=== PATIENT | male | born 1945 | race Caucasian/White ===

== ENCOUNTER 2016-12-11 21:31 | Observation (INO) | payer MEDICAID, MEDICARE ==
[2016-12-11 21:33] VITALS: BMI 27.4
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
[2016-12-11 22:12] LABS: BASO # 0.04 K/mm3 (0.0-2.0); BASO % 0.8 % (0.0-3.0); EOS # 0.1 (0.0-0.7); EOS % 2.7 % (1.5-5.0); GRAN # 2.74 (1.4-6.5); HEMATOCRIT 42.8 % (42.0-52.0); LYMPH # 1.8 (1.2-3.4); LYMPH % 34.2 % (22.0-35.0); MEAN CELL VOLUME 88.1 fl (80.0-105.0); MEAN CORPUSCULAR HGB CONC 34.1 g/dl (31.0-37.0); MONO # 0.5 (0.1-0.6); MONO % 10.3 % (1.0-6.0); RED CELL DISTRIBUTION WIDTH 14.5 % (11.5-14.5); WHITE BLOOD COUNT 5.3 10^3/ul (4.5-11.0)
[2016-12-11 22:26] LABS: INR 1.03 (0.93-1.08); PARTIAL THROMBOPLASTIN TIME 32.1 Seconds (25.1-36.5)
[2016-12-11 22:54] LABS: URINE BILIRUBIN NEGATIVE (NEGATIVE); URINE BLOOD NEGATIVE (NEGATIVE); URINE GLUCOSE (UA) NEGATIVE (NEGATIVE); URINE KETONE NEGATIVE (NEGATIVE); URINE LEUKOCYTE ESTERASE NEGATIVE Leu/uL (NEGATIVE); URINE PROTEIN TRACE mg/dL (<30 mg/dL)
[2016-12-11 22:57] LABS: ALB/GLOB RATIO 1.3 (1.1-1.8); ALKALINE PHOSPHATASE 34 U/L (38-126); ALT/SGPT 34 U/L (7-56); AMYLASE 89 U/L (35-125); AST/SGOT 33 U/L (17-59); BILIRUBIN,TOTAL 0.6 mg/dL (0.2-1.3); BLOOD UREA NITROGEN 18 mg/dL (7-21); CALCIUM 9.4 mg/dL (8.4-10.5); CARBON DIOXIDE 23 mmol/L (21-33); CHLORIDE 108 mmol/L (98-107); GFR AFRICAN-AMERICAN > 60; GLUCOSE,RANDOM 129 mg/dL (70-110); LIPASE 318 U/L (23-300); POTASSIUM 3.4 mmol/L (3.6-5.0); SODIUM 140 mmol/L (132-148); TOTAL PROTEIN 5.9 g/dL (5.8-8.3)
[2016-12-11 22:58] LABS: URINE APPEARANCE CLEAR (CLEAR); URINE COLOR YELLOW (YELLOW); URINE EPITHELIAL CELLS 0 - 2 /hpf (0-5); URINE RBC 0 - 2 /hpf (0-2); URINE WBC 0 - 2 /hpf (0-6)
[2016-12-11] MEDS ORDERED: Potassium Chloride 20 mEq ER Tab PO STA (23:11)
[2016-12-11 23:19] LABS: TROPONIN I < 0.01 ng/mL
[2016-12-11] MEDS ORDERED: Aspirin 325 mg EC Tablets PO STA (23:52)
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
[2016-12-12 06:27] LABS: BASO # 0.04 K/mm3 (0.0-2.0); BASO % 0.9 % (0.0-3.0); EOS # 0.1 (0.0-0.7); EOS % 3.1 % (1.5-5.0); GRAN # 2.4 (1.4-6.5); GRAN % 52.6 % (50.0-68.0); HEMATOCRIT 42.6 % (42.0-52.0); LYMPH # 1.6 (1.2-3.4); MEAN CELL VOLUME 87.3 fl (80.0-105.0); MEAN CORPUSCULAR HEMOGLOBIN 29.1 pg (25.0-35.0); MEAN CORPUSCULAR HGB CONC 33.3 g/dl (31.0-37.0); MONO # 0.4 (0.1-0.6); MONO % 9.4 % (1.0-6.0); RED CELL DISTRIBUTION WIDTH 14.5 % (11.5-14.5); WHITE BLOOD COUNT 4.6 10^3/ul (4.5-11.0)
[2016-12-12 06:34] LABS: ALB/GLOB RATIO 1.3 (1.1-1.8); ALKALINE PHOSPHATASE 39 U/L (38-126); ALT/SGPT 30 U/L (7-56); AST/SGOT 30 U/L (17-59); BILIRUBIN,TOTAL 0.7 mg/dL (0.2-1.3); BLOOD UREA NITROGEN 15 mg/dL (7-21); CALCIUM 9.6 mg/dL (8.4-10.5); CARBON DIOXIDE 21 mmol/L (21-33); CHLORIDE 111 mmol/L (98-107); CHOLESTEROL 178 mg/dL (130-200); GFR AFRICAN-AMERICAN > 60; GLUCOSE,RANDOM 88 mg/dL (70-110); PHOSPHOROUS 3.4 mg/dL (2.5-4.5); SODIUM 141 mmol/L (132-148); TOTAL PROTEIN 6.3 g/dL (5.8-8.3)
[2016-12-12 06:46] LABS: TROPONIN I < 0.01 ng/mL
[2016-12-12 08:11] VITALS: O2SAT 95
--- NOTE | 2016-12-12 10:08 | CARD ---
APPROVED REPORT EKG Measurement Heart [id number] [place] [id number] <Conclusion> Sinus rhythm Normal ECG No change
--- NOTE | 2016-12-12 10:12 | RAD ---
HISTORY: cp COMPARISON: Portable chest 12/18/2015. FINDINGS: LUNGS: No active pulmonary disease. PLEURA: No significant pleural effusion identified, no pneumothorax apparent. CARDIOVASCULAR: Normal. OSSEOUS STRUCTURES: No significant abnormalities. VISUALIZED UPPER ABDOMEN: Normal. OTHER FINDINGS: None. IMPRESSION: No interval acute cardiopulmonary disease appreciated.
--- NOTE | 2016-12-12 10:17 | CARD ---
APPROVED REPORT EKG Measurement Heart [id number] <Conclusion> Normal sinus rhythm Normal ECG No change
[2016-12-12 12:45] LABS: TROPONIN I < 0.01 ng/mL
[2016-12-12 13:10] VITALS: BP 96/55; RESP 18; TEMP 98.4
[2016-12-12 15:01] VITALS: PULSE 74
--- NOTE | 2016-12-12 18:22 | US ---
HISTORY: RUQ pain, h/o cholelithiasis COMPARISON: None. TECHNIQUE: Sonographic evaluation of the right upper quadrant of the abdomen. FINDINGS: Imaging is limited by body habitus. LIVER: Measures 13.5 cm in length. Normal echogenicity of the liver parenchyma. No mass. No intrahepatic bile duct dilatation. GALLBLADDER: Mildly distended. A likely sludge layering the dependent portion though underlying calculi are not completely excluded. No pericholecystic fluid collection appreciated. COMMON BILE DUCT: Measures 2.9 mm. No stones. No dilatation. PANCREAS: The tail of the pancreas is obscured by overlying bowel gas with remainder unremarkable. RIGHT KIDNEY: Measures 10.1 cm in length. Echogenic renal parenchyma suggest intrinsic medical renal disease. No calculus, mass, or hydronephrosis. AORTA: No aneurysmal dilatation. IVC: Unremarkable. OTHER FINDINGS: None . IMPRESSION: 1. Sludge is and potential cholelithiasis seen layering in the dependent gallbladder. Normal CBD caliber. 2. Partially of the pancreas. 3. Echogenic renal parenchyma suggest intrinsic medical renal disease.
--- NOTE | 2016-12-12 18:27 | CON ---
REASON FOR CONSULTATION: Chest pain. SUBJECTIVE: The patient is 71-year-old [place] male who has history of hypertension, hyperlipidemia, history of coronary artery stenting at [facility] and at [facility]. The most recent one was 3 years ago according to the patient. The patient had seen Dr. Lozano as an outpatient recently in his office. Myoview stress test was done this month and the report was normal. SPECT perfusion study, normal gated wall motion of the left ventricle. The patient present because of retrosternal chest tightness that he had to take 3 sublingual nitroglycerin to get relief. The patient is currently chest pain free. SOCIAL HISTORY: The patient is former smoker. MEDICATIONS: Lopressor 25 mg once a day, Plavix 75 mg once a day, Protonix 40 mg once a day, Zestril 20 mg once a day, Zetia 10 mg once a day. PHYSICAL EXAMINATION: GENERAL: The patient is an elderly male who does not appear to be in no acute distress. VITAL SIGNS: Blood pressure 105/64, heart rate 63, temperature 97.7, respirations 19. HEENT: Normocephalic. NECK: No JVD. CHEST: Clear. HEART: S1 and S2 regular. ABDOMEN: Soft. EXTREMITIES: No edema. LABORATORY DATA: SMA-7 today is within normal limit except for chloride of 111. Two sets of troponin's are negative. Lipase is elevated at 318. CBC is within normal limit. PT, PTT, and INR are within normal limit. EKG revealed normal sinus rhythm. ASSESSMENT: 1. Chest pain, myocardial infraction is ruled out. 2. Rule out pancreatitis and/or cholecystitis. The patient's most recent ultrasound in 12/2015 of the gallbladder revealed cholelithiasis without sonographic evidence of cholecystitis. RECOMMENDATIONS: Continue current Lopressor, Plavix, Zestril, Zetia, and Protonix. The patient will undergo gallbladder ultrasound. Gilberto Bragg MD
[2016-12-12] MEDS ORDERED: RANEXA 500 MG PO SCH (22:00)
--- NOTE | 2016-12-13 09:11 | CARD ---
APPROVED REPORT EKG Measurement Heart [id number] <Conclusion> Normal sinus rhythm Leftward axis NSSTW changes, new
--- NOTE | 2016-12-13 17:09 | CP.PCM.DIS ---
<Elian Lovell - Last Filed: 12/13/16 17:10> Provider - Provider Date of Admission: 12/11/16 23:53 Attending physician: Randolph Carvalho MD Primary care physician: Blossom Landa MD Time Spent in preparation of Discharge (in minutes): 45 Hospital Course - Lab Results Lab Results: Most Recent Lab Values WBC 4.6 10^3/ul (4.5-11.0) 12/12/16 06:00 RBC 4.88 10^6/uL (3.5-6.1) 12/12/16 06:00 Hgb 14.2 g/dL (14.0-18.0) 12/12/16 06:00 Hct 42.6 % (42.0-52.0) 12/12/16 06:00 MCV 87.3 fl (80.0-105.0) 12/12/16 06:00 MCH 29.1 pg (25.0-35.0) 12/12/16 06:00 MCHC 33.3 g/dl (31.0-37.0) 12/12/16 06:00 RDW 14.5 % (11.5-14.5) 12/12/16 06:00 Plt Count 384 10^3/uL (120.0-450.0) 12/12/16 06:00 MPV 9.0 fl (7.0-11.0) 12/12/16 06:00 Gran % 52.6 % (50.0-68.0) 12/12/16 06:00 Lymph % (Auto) 34.0 % (22.0-35.0) 12/12/16 06:00 [place] % (Auto) 9.4 % (1.0-6.0) H 12/12/16 06:00 Eos % (Auto) 3.1 % (1.5-5.0) 12/12/16 06:00 Baso % (Auto) 0.9 % (0.0-3.0) 12/12/16 06:00 Gran # 2.40 (1.4-6.5) 12/12/16 06:00 Lymph # 1.6 (1.2-3.4) 12/12/16 06:00 [place] # 0.4 (0.1-0.6) 12/12/16 06:00 Eos # 0.1 (0.0-0.7) 12/12/16 06:00 Baso # 0.04 K/mm3 (0.0-2.0) 12/12/16 06:00 PT 11.2 SECONDS (9.4-12.5) 12/11/16 14:28 INR 1.03 (0.93-1.08) 12/11/16 14:28 APTT 32.1 Seconds (25.1-36.5) 12/11/16 14:28 Sodium 141 mmol/L (132-148) 12/12/16 06:00 Potassium 4.0 mmol/L (3.6-5.0) 12/12/16 06:00 Chloride 111 mmol/L (98-107) H 12/12/16 06:00 Carbon Dioxide 21 mmol/L (21-33) 12/12/16 06:00 Anion Gap 13 (10-20) 12/12/16 06:00 BUN 15 mg/dL (7-21) 12/12/16 06:00 Creatinine 1.0 mg/dL (0.8-1.5) 12/12/16 06:00 Est GFR ( Amer) > 60 12/12/16 06:00 Est GFR (Non-Af Amer) > 60 12/12/16 06:00 Random Glucose 88 mg/dL (70-110) 12/12/16 06:00 Calcium 9.6 mg/dL (8.4-10.5) 12/12/16 06:00 Phosphorus 3.4 mg/dL (2.5-4.5) 12/12/16 06:00 Magnesium 2.0 mg/dL (1.7-2.2) 12/12/16 06:00 Total Bilirubin 0.7 mg/dL (0.2-1.3) 12/12/16 06:00 AST 30 U/L (17-59) 12/12/16 06:00 ALT 30 U/L (7-56) 12/12/16 06:00 Alkaline Phosphatase 39 U/L (38-126) 12/12/16 06:00 Lactate Dehydrogenase 311 U/L (333-699) L 12/12/16 12:15 Total Creatine Kinase 47 U/L (35-230) 12/12/16 12:15 Troponin I < 0.01 ng/mL 12/12/16 12:15 Total Protein 6.3 g/dL (5.8-8.3) 12/12/16 06:00 Albumin 3.5 g/dL (3.0-4.8) 12/12/16 06:00 Globulin 2.8 gm/dL 12/12/16 06:00 Albumin/Globulin Ratio 1.3 (1.1-1.8) 12/12/16 06:00 Triglycerides 67 mg/dL (35-160) 12/12/16 06:00 Cholesterol 178 mg/dL (130-200) 12/12/16 06:00 LDL Cholesterol Direct 137 mg/dL (0-129) H 12/12/16 06:00 HDL Cholesterol 40 mg/dL (29-60) 12/12/16 06:00 Amylase 89 U/L (35-125) 12/11/16 22:10 Lipase 318 U/L (23-300) H 12/11/16 22:10 TSH 3rd Generation 2.74 mIU/mL (0.46-4.68) 12/12/16 06:00 Urine Color Yellow (YELLOW) 12/11/16 22:10 Urine Appearance Clear (CLEAR) 12/11/16 22:10 Urine pH 6.0 (4.7-8.0) 12/11/16 22:10 Ur Specific [place] 1.025 (1.005-1.035) 12/11/16 22:10 Urine Protein Trace mg/dL (<30 mg/dL) H 12/11/16 22:10 Urine Glucose (UA) Negative mg/dL (NEGATIVE) 12/11/16 22:10 Urine Ketones Negative mg/dL (NEGATIVE) 12/11/16 22:10 Urine Blood Negative (NEGATIVE) 12/11/16 22:10 Urine Nitrate Negative (NEGATIVE) 12/11/16 22:10 Urine Bilirubin Negative (NEGATIVE) 12/11/16 22:10 Urine Urobilinogen 4.0 E.U./dL (<1 E.U./dL) H 12/11/16 22:10 Ur Leukocyte Esterase Negative Juan Manuel/uL (NEGATIVE) 12/11/16 22:10 Urine RBC 0 - 2 /hpf (0-2) 12/11/16 22:10 Urine WBC 0 - 2 /hpf (0-6) 12/11/16 22:10 Ur Epithelial Cells 0 - 2 /hpf (0-5) 12/11/16 22:10 Urine Other Usperm 12/11/16 22:10 - Hospital Course Hospital Course: Mr Junior is a 71 year old male with past medical history of cad s/p stents, cholelithiasis, HTN, HLD who presents to [facility] ED on 12/12/16 with complaints of chest pain that began while patient was lying down around 8:30 p.m. Patient states the pain radiated from the left side of his chest to the right and back to his right shoulder. Patient describes the pain as a combination of pressure and sharp pain rating it a 10/10. When the pain started patient took 3 nirates. In ED, EKG showed NSR @ 74bpm with nonspecific ST/T wave changes. CXR was unremarkable. Patient was transferred to telemetry unit for monitoring. Cardiology was consulted. When examined, the patient was asymptomatic and chest pain had resolved. Abd US showed cholelithiasis w/ normal CBD caliber. Troponin I negative x3. Patient is a patient of Dr. Lozano and sees him as an outpatient. Stress test was done this month was normal. SPECT perfusion study showed normal gated wall motion of LV. CA was ruled out and Cardio cleared pt. Patient continued to be asymptomatic and was discharged to follow up with Dr. Lozano, ENT doc (regarding epistaxis on Plavix) and PMD Dr. Landa and to continue his medications ASA, Plavix, lopressor, zestril, zetia, dexilant, bentyl, fenofibrate, prsocar, flomax, ranexa and protonix. pt understood and entire family was present and also understand the outlined treatment plan. - Date & Time of H&P Date of H&P: 12/12/16 Time of H&P: 00:55 Discharge Exam - Additional Findings Additional findings: - Constitutional Appears: Non-toxic, No Acute Distress - Head Exam Head Exam: ATRAUMATIC, NORMAL INSPECTION, NORMOCEPHALIC - Eye Exam Eye Exam: EOMI, Normal appearance - ENT Exam ENT Exam: Mucous Membranes Moist, Normal Exam - Neck Exam Neck exam: Positive for: Normal Inspection. Negative for: Lymphadenopathy, Tenderness - Respiratory Exam Respiratory Exam: Clear to Auscultation Bilateral, NORMAL BREATHING PATTERN. absent: Rales, Wheezes, Respiratory Distress - Cardiovascular Exam Cardiovascular Exam: REGULAR RHYTHM, +S1, +S2. absent: Diastolic murmur, Systolic Murmur - GI/Abdominal Exam GI & Abdominal Exam: Normal Bowel Sounds, Soft, Tenderness (Fitzpatrick's sign). absent: Distended, Firm, Mass - Extremities Exam Extremities exam: Negative for: normal inspection, pedal edema, tenderness - Back Exam Back exam: NORMAL INSPECTION - Neurological Exam Neurological exam: Alert, CN II-XII Intact, Oriented x3 - Psychiatric Exam Psychiatric exam: Normal Affect, Normal Mood - Skin Skin Exam: Normal Color, Warm Discharge Plan - Follow Up Plan Condition: GOOD Disposition: HOME/ ROUTINE Instructions: Biliary Colic (GEN), Gallstones (DC) Additional Instructions: - please follow up with Dr. Lozano this week - please continue your home meds - please follow up with Dr. Landa - please follow up with ENT concerning the nose bleeding - if you experience any worsening of symptoms, new chest pain, shortness of breath or fevers/chills, please return to ED for evaluation Thank you Elian Lovell PGY1 Dr. Carvalho, Attending Physician RN NOTE Follow the above Discharge Instructions as outlined above. Referrals: Joao Lozano MD [Staff Provider] - Blossom Landa MD [Primary Care Provider] - <Randolph Carvalho - Last Filed: 12/13/16 17:36> Provider - Provider Date of Admission: 12/11/16 23:53 Attending physician: Randolph Carvalho MD Primary care physician: Blossom Landa MD Hospital Course - Lab Results Lab Results: Most Recent Lab Values WBC 4.6 10^3/ul (4.5-11.0) 12/12/16 06:00 RBC 4.88 10^6/uL (3.5-6.1) 12/12/16 06:00 Hgb 14.2 g/dL (14.0-18.0) 12/12/16 06:00 Hct 42.6 % (42.0-52.0) 12/12/16 06:00 MCV 87.3 fl (80.0-105.0) 12/12/16 06:00 MCH 29.1 pg (25.0-35.0) 12/12/16 06:00 MCHC 33.3 g/dl (31.0-37.0) 12/12/16 06:00 RDW 14.5 % (11.5-14.5) 12/12/16 06:00 Plt Count 384 10^3/uL (120.0-450.0) 12/12/16 06:00 MPV 9.0 fl (7.0-11.0) 12/12/16 06:00 Gran % 52.6 % (50.0-68.0) 12/12/16 06:00 Lymph % (Auto) 34.0 % (22.0-35.0) 12/12/16 06:00 [place] % (Auto) 9.4 % (1.0-6.0) H 12/12/16 06:00 Eos % (Auto) 3.1 % (1.5-5.0) 12/12/16 06:00 Baso % (Auto) 0.9 % (0.0-3.0) 12/12/16 06:00 Gran # 2.40 (1.4-6.5) 12/12/16 06:00 Lymph # 1.6 (1.2-3.4) 12/12/16 06:00 [place] # 0.4 (0.1-0.6) 12/12/16 06:00 Eos # 0.1 (0.0-0.7) 12/12/16 06:00 Baso # 0.04 K/mm3 (0.0-2.0) 12/12/16 06:00 PT 11.2 SECONDS (9.4-12.5) 12/11/16 14:28 INR 1.03 (0.93-1.08) 12/11/16 14:28 APTT 32.1 Seconds (25.1-36.5) 12/11/16 14:28 Sodium 141 mmol/L (132-148) 12/12/16 06:00 Potassium 4.0 mmol/L (3.6-5.0) 12/12/16 06:00 Chloride 111 mmol/L (98-107) H 12/12/16 06:00 Carbon Dioxide 21 mmol/L (21-33) 12/12/16 06:00 Anion Gap 13 (10-20) 12/12/16 06:00 BUN 15 mg/dL (7-21) 12/12/16 06:00 Creatinine 1.0 mg/dL (0.8-1.5) 12/12/16 06:00 Est GFR ( Amer) > 60 12/12/16 06:00 Est GFR (Non-Af Amer) > 60 12/12/16 06:00 Random Glucose 88 mg/dL (70-110) 12/12/16 06:00 Calcium 9.6 mg/dL (8.4-10.5) 12/12/16 06:00 Phosphorus 3.4 mg/dL (2.5-4.5) 12/12/16 06:00 Magnesium 2.0 mg/dL (1.7-2.2) 12/12/16 06:00 Total Bilirubin 0.7 mg/dL (0.2-1.3) 12/12/16 06:00 AST 30 U/L (17-59) 12/12/16 06:00 ALT 30 U/L (7-56) 12/12/16 06:00 Alkaline Phosphatase 39 U/L (38-126) 12/12/16 06:00 Lactate Dehydrogenase 311 U/L (333-699) L 12/12/16 12:15 Total Creatine Kinase 47 U/L (35-230) 12/12/16 12:15 Troponin I < 0.01 ng/mL 12/12/16 12:15 Total Protein 6.3 g/dL (5.8-8.3) 12/12/16 06:00 Albumin 3.5 g/dL (3.0-4.8) 12/12/16 06:00 Globulin 2.8 gm/dL 12/12/16 06:00 Albumin/Globulin Ratio 1.3 (1.1-1.8) 12/12/16 06:00 Triglycerides 67 mg/dL (35-160) 12/12/16 06:00 Cholesterol 178 mg/dL (130-200) 12/12/16 06:00 LDL Cholesterol Direct 137 mg/dL (0-129) H 12/12/16 06:00 HDL Cholesterol 40 mg/dL (29-60) 12/12/16 06:00 Amylase 89 U/L (35-125) 12/11/16 22:10 Lipase 318 U/L (23-300) H 12/11/16 22:10 TSH 3rd Generation 2.74 mIU/mL (0.46-4.68) 12/12/16 06:00 Urine Color Yellow (YELLOW) 12/11/16 22:10 Urine Appearance Clear (CLEAR) 12/11/16 22:10 Urine pH 6.0 (4.7-8.0) 12/11/16 22:10 Ur Specific [place] 1.025 (1.005-1.035) 12/11/16 22:10 Urine Protein Trace mg/dL (<30 mg/dL) H 12/11/16 22:10 Urine Glucose (UA) Negative mg/dL (NEGATIVE) 12/11/16 22:10 Urine Ketones Negative mg/dL (NEGATIVE) 12/11/16 22:10 Urine Blood Negative (NEGATIVE) 12/11/16 22:10 Urine Nitrate Negative (NEGATIVE) 12/11/16 22:10 Urine Bilirubin Negative (NEGATIVE) 12/11/16 22:10 Urine Urobilinogen 4.0 E.U./dL (<1 E.U./dL) H 12/11/16 22:10 Ur Leukocyte Esterase Negative Juan Manuel/uL (NEGATIVE) 12/11/16 22:10 Urine RBC 0 - 2 /hpf (0-2) 12/11/16 22:10 Urine WBC 0 - 2 /hpf (0-6) 12/11/16 22:10 Ur Epithelial Cells 0 - 2 /hpf (0-5) 12/11/16 22:10 Urine Other Usperm 12/11/16 22:10 Attending/Attestation - Attestation I have personally seen and examined this patient.: Yes I have fully participated in the care of the patient.: Yes I have reviewed all pertinent clinical information, including history, physical exam and plan: Yes Notes (Text): 12/13/16 17:34 attending note; Patient seen and examined with resident. Patient is a 71-year-old male admitted with chest pain. Patient with a history of coronary artery disease and stent placement in 2014. Cardiac enzymes 3 negative. Cardiology evaluation appreciated. Patient had recent stress test on 11/30 is normal. Continue aspirin. Follow-up with Dr. Lozano upon discharge. patient with a history of nosebleed. Currently no active bleeding. Follow-up with ENT as outpatient. Diagnosis; Chest pain Cholelithiasis 12/13/16 17:35
== END 2016-12-12 18:31 | disposition home or self-care (01) ==
LOC: ED 21:31 → ERH 23:53 → 2RNO 12-12 02:45
PROVIDERS: ADMIT Internal Medicine; ATTEND Internal Medicine
DX: R07.9 Chest pain, unspecified (principal); I25.10 Atherosclerotic heart disease of native coronary artery without angina pectoris; I10 Essential (primary) hypertension; E78.5 Hyperlipidemia, unspecified; N40.0 Benign prostatic hyperplasia without lower urinary tract symptoms; K80.20 Calculus of gallbladder without cholecystitis without obstruction; Z79.02 Long term (current) use of antithrombotics/antiplatelets; Z79.82 Long term (current) use of aspirin; Z95.5 Presence of coronary angioplasty implant and graft; Z87.891 Personal history of nicotine dependence
CPT/HCPCS: 36415; 71010; 76705; 80053; 80061; 81001; 82150; 82550; 83615; 83690; 83735; 84100; 84443; 84484; 85025; 85610; 85730; 93005; 96374; 99285; C9113; G0378; J1644

== ENCOUNTER 2017-05-16 07:55 | Day surgery (SDC) | payer MEDICARE, MEDICAID ==
[2017-05-03 08:16] VITALS: BMI 26.9
--- NOTE | 2017-05-16 04:46 | HP ---
REASON FOR ADMISSION: Left heart cath, possible angioplasty, unstable angina. BRIEF CLINICAL HISTORY: This is a 72-year-old male with past medical history significant for coronary artery disease, status post multiple stents, PTCA, last stent to LAD on 11/14/2014; came with niece complaining of chest pain since 2 months off and on. Initially patient had cholecystitis, so patient underwent cholecystectomy and remained stable for 2 weeks after the cholecystectomy, then the chest pain started, retrosternal, goes into both arm and shoulder. Patient had a prior stress test on 11/17/2016 prior to cholecystectomy, it was negative. PAST MEDICAL HISTORY: Significant for hypertension, hyperlipidemia, coronary artery disease, status post multiple stents. SOCIAL HISTORY: denies any history of alcohol abuse. CURRENT MEDICATIONS: The patient is taking fenofibrate 160 mg daily, Bentyl 20 mg daily, Dexilant 30 mg daily, aspirin 81 mg daily, Cardizem 120 mg daily, Carafate 1 g daily, Ranexa 500 p.o. b.i.d., metoprolol 25 mg daily, vitamin D 50,000 units, atorvastatin 40 mg daily. REVIEW OF SYSTEMS: As per HPI. PHYSICAL EXAMINATION: VITAL SIGNS: Height of the patient is 5 feet 4 inches. Weight of the patient is 157 pounds. Body mass index 27 kg/m2. Rest of the examination as follows: Heart rate 65, blood pressure 120/60. HEENT: PERRLA. Extraocular muscles intact. NECK: Supple. No carotid bruit. No thyromegaly. CHEST: Clear to auscultation. HEART: S1 and S2 regular. ABDOMEN: Soft. EXTREMITIES: Clubbing and cyanosis negative. LABORATORY DATA: Blood workup pending. A stress test on 11/17/2016, and prior to that, patient had a stress test on 11/03/2014, essentially negative. Recent chest pain, possible unstable angina. Echo shows ejection fraction mild MR, mild AR, mild TR, dated 11/09/2016. RVSP 22 mmHg. IMPRESSION: New-onset of unstable angina, history of coronary artery disease, history of multiple stents in the past, previous catheterization dated 04/03/2012 in , patent stent and medical treatment recommended, status post cholecystectomy. RECOMMENDATION: We will do the cardiac catheterization. Further recommendation after cardiac catheterization. Patient is scheduled for cardiac catheterization on 05/16/2017 at 8:30. We will review the lab when it is available. The risks, benefits, and alternatives were explained to the patient. Patient agreed and we will proceed for cardiac catheterization. Thank you Dr. Blossom Landa for providing us the opportunity in taking care of patient, Srikanth Junior. Joao Lozano MD
[2017-05-16 08:49] LABS: BASO # 0.02 K/mm3 (0.0-2.0); BASO % 0.4 % (0.0-3.0); EOS # 0.1 (0.0-0.7); EOS % 2.7 % (1.5-5.0); GRAN # 2.56 (1.4-6.5); GRAN % 52.8 % (50.0-68.0); HEMOGLOBIN 15.3 g/dL (14.0-18.0); LYMPH # 1.7 (1.2-3.4); MEAN CORPUSCULAR HEMOGLOBIN 29.7 pg (25.0-35.0); MEAN CORPUSCULAR HGB CONC 34.1 g/dl (31.0-37.0); MEAN PLATELET VOLUME 9.1 fl (7.0-11.0); MONO # 0.5 (0.1-0.6); MONO % 10.1 % (1.0-6.0); RBC 5.16 10^6/uL (3.5-6.1); RED CELL DISTRIBUTION WIDTH 14.1 % (11.5-14.5); WHITE BLOOD COUNT 4.9 10^3/ul (4.5-11.0)
[2017-05-16 08:56] LABS: BLOOD UREA NITROGEN 25 mg/dL (7-21); CALCIUM 10.3 mg/dL (8.4-10.5); GFR AFRICAN-AMERICAN > 60; GFR NON-AFRICAN AMERICAN > 60; HDL CHOLESTEROL 43 mg/dL (29-60)
[2017-05-16 09:06] LABS: INR 0.99 (0.93-1.08); LDL CHOLESTEROL 149 mg/dL (0-129); PARTIAL THROMBOPLASTIN TIME 36.2 Seconds (25.1-36.5); PROTHROMBIN TIME 11.4 SECONDS (9.4-12.5)
[2017-05-16 09:29] VITALS: RESP 18
[2017-05-16] MEDS ORDERED: Iodixanol 320 MG/ML 200 ML BOTTLE IV ONE (12:34)
[2017-05-16] MEDS ORDERED: Lidocaine 2% Inj (20ml) ONE (12:34)
[2017-05-16] MEDS ORDERED: Phenylephrine 10 mg/ml Inj ONE (12:34)
[2017-05-16] MEDS ORDERED: Midazolam 2 MG/2 ML VIAL ONE (13:09)
[2017-05-16] MEDS ORDERED: Iohexol 350mgl/ml 50 ML ONE (13:35)
[2017-05-16] MEDS ORDERED: Sodium Chloride 0.9% 1,000 ML IV SCH (14:15)
[2017-05-16 14:31] VITALS: TEMP 97.4
--- NOTE | 2017-05-16 14:41 | CPOSTOP ---
ON: Cardiovascular Lab Postprocedure Note PHYSICIAN: Joao Lozano MD SHOE REPAIRMAN: JOVANY Viera. TYPE OF ANESTHESIA: Moderate sedation. Total dose given 2 mg of Versed, 100 mcg of fentanyl periodically; it started with 1 mg of Versed and 50 mcg of fentanyl. PRE-PROCEDURE DIAGNOSIS: Unstable angina. PROCEDURE PERFORMED: Left heart catheterization. FINDINGS: Patent stent in LAD, distal LAD diffusely diseased, but no flow limiting focal stenosis, [id number] disease in the RCA, preserved LV function, ejection fraction 55% to 60%, EDP was in the range of 15. FINAL DIAGNOSIS: Nonobstructive coronary artery disease, patent stent. POSTPROCEDURE CONDITION: The patient's condition is stable. VASCULAR ACCESS SITE: Right femoral artery (groin). TOTAL DOSE OF RADIATION: 4315.34 chu unit. TOTAL FLUORO TIME: 1.6 minutes. Joao Lozano MD
[2017-05-16 15:58] VITALS: O2SAT 100
[2017-05-16 15:59] VITALS: BP 139/71; PULSE 53
--- NOTE | 2017-05-16 18:10 | CARD ---
APPROVED REPORT Procedure(s) performed: Left Heart Catheterization HISTORY The patient is a 72 year-old male with a history of : previous diagnostic cath, tobacco history() : The patient is a former smoker , previous PCI (The PCI date was 11/14/2014), hypertension , dyslipidemia . INDICATION The indication(s) include : unstable angina , chest pain, dyspnea. CASE TECHNIQUE The patient was brought electively to the Cardiac Catheterization Laboratory in a fasting state and was prepped and draped in a sterile manner. The right femoral groin was infiltrated with 2% Lidocaine subcutaneous anesthesia. A 6 Fr x 11 cm Jovana sheath was inserted into the right femoral artery without difficulty. Coronary angiography was performed using coronary diagnostic catheters. The left coronary system was accessed and visualized with a Diagnostic ,5 Fr JL 4 catheter. The right coronary system was accessed and visualized with a Diagnostic ,5 Fr JR 4 catheter. The left ventricle was accessed and visualized with a 5 Fr Pigtail 145 (Angled) catheter. Left ventricular/Aortic Valve gradient assessed on pullback. Left ventriculogram was performed in JERNIGAN projection. Closure device was deployed with a 6 Fr Angio-Seal without any complications. The patient tolerated the procedure well and there were no complications associated with the procedure. Vessel Analysis The patient's coronary anatomy is right dominant. The left main coronary artery is a medium size vessel without significant stenosis. The left main bifurcates to the left anterior descending and circumflex. The left anterior descending artery is a medium size vessel with diffuse calcification noted throughout this vessel and with significant stenosis. patent stents in Proximal and Mid LAD There is a 55% stenosis in the distal segment. Diffuse disease The first diagonal branch is a small size vessel with diffuse calcification noted throughout this vessel and without significant stenosis. The second diagonal branch is a small size vessel with diffuse calcification noted throughout this vessel and without significant stenosis. The circumflex artery is a small size vessel with diffuse calcification noted throughout this vessel and without significant stenosis. The first obtuse marginal branch is a medium size vessel with diffuse calcification noted throughout this vessel and without significant stenosis. The right coronary artery is a large size vessel with diffuse calcification noted throughout this vessel and without significant stenosis. There is a 40% stenosis in the mid segment. The right posterior descending artery is a medium size vessel with diffuse calcification noted throughout this vessel and without significant stenosis. The right posterolateral branch is a medium size vessel with diffuse calcification noted throughout this vessel and without significant stenosis. Left Ventricle The left ventricle is borderline in size with normal contractility. The left ventricular ejection fraction is estimated to be 55-60%. The left ventricular end diastolic pressure is 15 mmHg. There was no gradient across the aortic valve upon pullback. Conclusion Patent Stent in Proximal and Mid LAD. Mild to moderate Instent restenosis in LAD, Distal LAD diffusely diseased. Presreved LV Fx, EF55-60%.EDP-15 mmof Hg. Small vessel Disease Recommendations Aggressive Medical TherapyCardiac Risk Reduction Program Increase Ranexa to 1000mg po BID, continue Baby ASA Gi work up for non Ischemic Chest pain. Cc; Dr. Landa
--- NOTE | 2017-05-16 19:29 | CARD ---
APPROVED REPORT EKG Measurement Heart [id number] <Conclusion> Normal sinus rhythm Normal ECG
== END 2017-05-16 18:00 | disposition home or self-care (01) ==
LOC: CATH 07:55
PROVIDERS: ATTEND Internal Medicine Cardiovascular Disease
DX: I25.110 Atherosclerotic heart disease of native coronary artery with unstable angina pectoris (principal); E78.5 Hyperlipidemia, unspecified; I10 Essential (primary) hypertension; Z87.891 Personal history of nicotine dependence; Z90.49 Acquired absence of other specified parts of digestive tract
CPT/HCPCS: 36415; 80048; 80061; 85025; 85610; 85730; 86850; 86900; 93005; 93458; 99152; 99153; C1760; C1769; C1887 ×2; C2629; J1644; J2250; J3010; J7040 ×2; Q9966